=== PATIENT | female | born 1965 | race Caucasian/White ===

== ENCOUNTER 2022-09-08 08:27 | Emergency (ER) | payer OTHER ==
[~2022-09-08] VITALS: Ht 177.8 cm; Wt 107.0 kg
[2022-09-08 09:16] LABS: Basophils # (auto) 0 10 ^3/uL (0-0.2); Basophils % (auto) 0.7 % (0.0-2.0); Eosinophils # (auto) 0.1 10 ^3/uL (0-0.8); Eosinophils % (auto) 1.3 % (0.0-7.0); Hematocrit 42.4 % (36.0-46.0); Hemoglobin 14.2 g/dL (12.2-16.2); Lymphocytes # (auto) 1.6 10 ^3/uL (0.4-5.4); Lymphocytes % (auto) 26.8 % (10.0-50.0); Mean Corpuscular Hgb Conc. 33.6 g/dL (32.0-36.0); Mean Corpuscular Volume 86.4 fL (80.0-100.0); Monocytes # (auto) 0.3 10 ^3/uL (0-1.3); Monocytes % (auto) 5.2 % (0.0-12.0); Neutrophils # (auto) 3.8 10 ^3/uL (1.6-8.6); Red Blood Cells 4.91 10^6/uL (4.0-5.20); Red Cell Distribution Width 13.6 % (11.8-14.3); White Blood Cell 5.8 10^3/uL (4.4-10.8)
[2022-09-08 09:20] LABS: Urine Bacteria FEW /hpf (None Seen); Urine Blood Negative /uL (Negative); Urine Specific Gravity 1.009 (1.001-1.035); Urine WBC <1 /hpf (0 - 5)
[2022-09-08 09:33] LABS: Albumin 3.8 g/dL (3.4-5.0); Potassium 4.1 mmol/L (3.5-5.1)
[2022-09-08 09:37] LABS: Bilirubin, Total 0.5 mg/dL (0.2-1.0); Total Protein 7.7 g/dL (6.4-8.2)
[2022-09-08] MEDS ORDERED: MECLIZINE HCL 25 MG TAB PO ONE (16:00)
[2022-09-08] MEDS ORDERED: FLUT1SPR21 (17:53)
[2022-09-08] MEDS ORDERED: MECL25CH38 PO (17:53)
[2022-09-08 18:05] VITALS: BP 133/82
== END 2022-09-08 18:07 | disposition home or self-care (01) ==
LOC: ER 08:27
DX: H81.10 Benign paroxysmal vertigo, unspecified ear (principal); Z90.89 Acquired absence of other organs
CPT/HCPCS: 36415; 71045; 80053; 81001; 84484; 85025; 93005; 99285; J8597

== ENCOUNTER 2023-03-11 07:46 | Emergency (ER) | payer OTHER ==
[~2023-03-11] VITALS: Ht 175.3 cm; Wt 107.0 kg
[~2023-03-11 07:46] MED LIST: FLUT1SPR21; MECL25CH38 PO
[2023-03-11 08:50] VITALS: BP 143/79
== END 2023-03-11 09:35 | disposition home or self-care (01) ==
LOC: ER 07:46
DX: S76.911A Strain of unspecified muscles, fascia and tendons at thigh level, right thigh, initial encounter (principal); Z88.5 Allergy status to narcotic agent; Z90.49 Acquired absence of other specified parts of digestive tract; Z90.89 Acquired absence of other organs; Z98.890 Other specified postprocedural states; X58.XXXA Exposure to other specified factors, initial encounter; Y93.89 Activity, other specified; Y92.89 Other specified places as the place of occurrence of the external cause; Y99.8 Other external cause status
CPT/HCPCS: 93971

== ENCOUNTER 2023-08-11 10:08 | Inpatient (IN) | payer OTHER ==
[~2023-08-11] VITALS: Ht 175.3 cm; Wt 104.8 kg
[2023-08-11 10:56] LABS: Basophils # (auto) 0.1 10 ^3/uL (0-0.2); Basophils % (auto) 1.4 % (0.0-2.0); Eosinophils # (auto) 0.1 10 ^3/uL (0-0.8); Eosinophils % (auto) 1.7 % (0.0-7.0); Hematocrit 37.3 % (36.0-46.0); Hemoglobin 12.5 g/dL (12.2-16.2); Lymphocytes # (auto) 1.3 10 ^3/uL (0.4-5.4); Lymphocytes % (auto) 17.3 % (10.0-50.0); Mean Corpuscular Hgb Conc. 33.5 g/dL (32.0-36.0); Mean Corpuscular Volume 83.8 fL (80.0-100.0); Monocytes # (auto) 0.4 10 ^3/uL (0-1.3); Monocytes % (auto) 5.3 % (0.0-12.0); Neutrophils # (auto) 5.7 10 ^3/uL (1.6-8.6); Neutrophils % (auto) 74.3 % (37.0-80.0); Nucleated Red Blood Cells % 0.1 %; Red Blood Cells 4.45 10^6/uL (4.0-5.20); Red Cell Distribution Width 13.9 % (11.8-14.3); White Blood Cell 7.6 10^3/uL (4.4-10.8)
[2023-08-11 11:13] LABS: INR 1.1 (0.9-1.15); Prothrombin Time 11.5 sec (9.3-11.8)
[2023-08-11 11:22] LABS: Alanine Aminotransferase 17 U/L (7-40); Albumin 3.7 g/dL (3.2-4.8); Alkaline Phosphatase 136 U/L (46-116); Anion Gap 6 (5-15); Aspartate Aminotransferase 30 U/L (13-40); Blood Urea Nitrogen 10 mg/dL (9-23); Calcium 9.2 mg/dL (8.7-10.4); Carbon Dioxide 28 mmol/L (20-30); Chloride 102 mmol/L (98-107); Glucose 104 mg/dL (74-106); Lipase 52 U/L (12-53); Sodium 136 mmol/L (136-145)
[2023-08-11 11:23] LABS: Bilirubin, Total 0.4 mg/dL (0.2-1.0); Total Protein 7.7 g/dL (5.7-8.2)
[2023-08-11 11:31] LABS: Urine Bacteria FEW /hpf (None Seen); Urine Blood Negative /uL (Negative); Urine Clarity HAZY (Clear); Urine Color Yellow (Yellow); Urine Mucus FEW (None Seen); Urine Protein, UAD 1+ (Negative); Urine Specific Gravity 1.019 (1.001-1.035); Urine Urobilinogen Normal (Negative); Urine WBC 3 /hpf (0 - 5); Urine pH 5.5 (5.0-8.0)
[2023-08-11 12:46] LABS: Bilirubin, Direct 0.2 mg/dL (<0.3)
[2023-08-11] MEDS ORDERED: ACETAMINOPHEN 325 MG TAB PO PRN (13:15)
[2023-08-11 13:38] VITALS: PULSE 77; RESP 19; O2SAT 95
[2023-08-11 13:43] LABS: Triglycerides 140 mg/dL (< 150)
[2023-08-11 13:44] LABS: LDL Cholesterol 116 mg/dL (< 100)
[2023-08-11 13:45] LABS: Cholesterol 188 mg/dL (< 200); HDL Cholesterol 50 mg/dL (40-59)
[2023-08-11] MEDS ORDERED: PANTOPRAZOLE 40 MG/10 ML VIAL INJ IV ONE (13:45)
[2023-08-11] MEDS: MECLIZINE HCL 25 MG TAB PO SCH ×2 (14:24→21:29)
[2023-08-11 16:39] LABS: Body Fluid pH 8
[2023-08-11 18:00] VITALS: BP 146/74; PULSE 77; RESP 14; TEMP 98.4; O2SAT 95
[2023-08-11 20:00] VITALS: RESP 16
[2023-08-11 20:05] LABS: Body Fluid White Blood Cells 1050 CUMM (0-200)
[2023-08-11 20:06] LABS: Body Fluid Polymorphonuclear 28 % (0-25); Body Fluid Red Blood Cells 2350 CUMM (0-2000)
[2023-08-11 22:00] VITALS: BP 116/63; PULSE 82; RESP 18; TEMP 98.6; O2SAT 95
[2023-08-12 05:00] VITALS: BP 124/68; PULSE 72; RESP 17; TEMP 98.8; O2SAT 93
[2023-08-12] MEDS: MECLIZINE HCL 25 MG TAB PO SCH ×3 (05:30→21:20)
[2023-08-12 07:46] LABS: Basophils # (auto) 0.1 10 ^3/uL (0-0.2); Eosinophils # (auto) 0.2 10 ^3/uL (0-0.8); Hemoglobin 11.5 g/dL (12.2-16.2); Monocytes # (auto) 0.6 10 ^3/uL (0-1.3); White Blood Cell 7.2 10^3/uL (4.4-10.8)
[2023-08-12 07:48] LABS: Eosinophils % (auto) 3.4 % (0.0-7.0); Hematocrit 34.3 % (36.0-46.0); Lymphocytes # (auto) 1.4 10 ^3/uL (0.4-5.4); Lymphocytes % (auto) 20.2 % (10.0-50.0); Mean Corpuscular Hemoglobin 27.9 pg (28.0-32.0); Mean Corpuscular Hgb Conc. 33.4 g/dL (32.0-36.0); Mean Corpuscular Volume 83.4 fL (80.0-100.0); Monocytes % (auto) 7.8 % (0.0-12.0); Neutrophils # (auto) 4.9 10 ^3/uL (1.6-8.6); Neutrophils % (auto) 67.6 % (37.0-80.0); Red Blood Cells 4.12 10^6/uL (4.0-5.20)
[2023-08-12 07:50] LABS: Alanine Aminotransferase 12 U/L (7-40); Alkaline Phosphatase 105 U/L (46-116); Anion Gap 5 (5-15); BUN/Creatinine Ratio 12.1 (10.0-20.0); Blood Urea Nitrogen 8 mg/dL (9-23); Calcium 8.6 mg/dL (8.5-10.1); Carbon Dioxide 28 mmol/L (20-30); Chloride 103 mmol/L (98-107); Glucose 92 mg/dL (74-106); Potassium 4.1 mmol/L (3.5-5.1); Sodium 136 mmol/L (136-145)
[2023-08-12 07:51] LABS: Albumin 3.2 g/dL (3.2-4.8); Aspartate Aminotransferase 24 U/L (13-40); Bilirubin, Total 0.5 mg/dL (0.2-1.0); Total Protein 6.6 g/dL (5.7-8.2)
[2023-08-12 08:00] VITALS: RESP 16
[2023-08-12 09:00] VITALS: BP 129/73; PULSE 74; RESP 20; TEMP 98.3; O2SAT 94
[2023-08-12] MEDS: PANTOPRAZOLE 40 MG/10 ML VIAL INJ IV SCH (10:59)
[2023-08-12 13:00] VITALS: BP 128/71; PULSE 66; RESP 20; TEMP 98.7; O2SAT 93
[2023-08-12 13:06] LABS: Protein, Body Fluid 5.6 g/dL (.)
[2023-08-12 22:00] VITALS: BP 118/71; PULSE 84; RESP 18; TEMP 98.8; O2SAT 94
[2023-08-13 05:08] VITALS: BP 122/72; PULSE 88; RESP 16; TEMP 98.5; O2SAT 98
[2023-08-13] MEDS: MECLIZINE HCL 25 MG TAB PO SCH ×2 (05:44→14:00)
[2023-08-13 08:00] VITALS: RESP 16
[2023-08-13 09:00] VITALS: BP 135/78; PULSE 76; RESP 20; TEMP 97.9; O2SAT 94
[2023-08-13] MEDS: PANTOPRAZOLE 40 MG/10 ML VIAL INJ IV SCH (09:22)
[2023-08-13 13:00] VITALS: BP 144/75; PULSE 80; RESP 20; TEMP 98.1; O2SAT 94
[2023-08-13 15:35] VITALS: BP 135/78; PULSE 76; RESP 20; TEMP 36.7; O2SAT 94
[2023-08-13 16:30] VITALS: BP 121/69; PULSE 86; RESP 18; TEMP 97.6; O2SAT 95
== END 2023-08-13 17:30 | disposition home or self-care (01) | DRG 755 ==
LOC: ER 10:08 → OVERFLOW 13:15 → TELE-WESTW 17:56 → WEST WING 18:12
PROVIDERS: ADMIT Nurse Practitioner Family; ATTEND Internal Medicine Geriatric Medicine
PROC: 0W9G3ZZ Drainage of Peritoneal Cavity, Percutaneous Approach (ICD-10-PCS; principal; 2023-08-11)
DX: C56.9 Malignant neoplasm of unspecified ovary (principal); C78.6 Secondary malignant neoplasm of retroperitoneum and peritoneum; R18.0 Malignant ascites; K57.30 Diverticulosis of large intestine without perforation or abscess without bleeding; D73.89 Other diseases of spleen; R97.1 Elevated cancer antigen 125 [CA 125]; E66.01 Morbid (severe) obesity due to excess calories; Z68.34 Body mass index [BMI] 34.0-34.9, adult; Z80.0 Family history of malignant neoplasm of digestive organs; Z83.3 Family history of diabetes mellitus; Z85.07 Personal history of malignant neoplasm of pancreas; Z88.5 Allergy status to narcotic agent; Z90.49 Acquired absence of other specified parts of digestive tract; Z71.3 Dietary counseling and surveillance
CPT/HCPCS: 36415; 71045; 74176; 76705; 76830; 76856; 76942; 80053; 80061; 81001; 82248; 82962; 83690; 83986; 84443; 84484; 85025; 85610; 86301; 86304; 87205; 89051; 93005; 96374; C9113; G0378

== ENCOUNTER 2023-08-23 09:50 | Inpatient (IN) | payer OTHER ==
[~2023-08-23] VITALS: Ht 175.3 cm; Wt 108.6 kg
[2023-08-23 11:03] LABS: Basophils # (auto) 0.1 10 ^3/uL (0-0.2); Eosinophils # (auto) 0.1 10 ^3/uL (0-0.8); Eosinophils % (auto) 0.6 % (0.0-7.0); Lymphocytes # (auto) 1.2 10 ^3/uL (0.4-5.4); Monocytes # (auto) 0.5 10 ^3/uL (0-1.3); Red Cell Distribution Width 14.5 % (11.8-14.3)
[2023-08-23 11:05] LABS: Urine Bacteria NONE SEEN /hpf (None Seen); Urine Blood Negative /uL (Negative); Urine Clarity HAZY (Clear); Urine Color Yellow (Yellow); Urine Hyaline Cast FEW /lpf (0 - 2); Urine Mucus FEW (None Seen); Urine Protein, UAD 1+ (Negative); Urine Specific Gravity 1.028 (1.001-1.035); Urine Urobilinogen Normal (Negative); Urine WBC 2 /hpf (0 - 5); Urine pH 5.5 (5.0-8.0)
[2023-08-23 11:06] LABS: Basophils % (auto) 1.2 % (0.0-2.0); Hematocrit 38.6 % (36.0-46.0); Hemoglobin 12.6 g/dL (12.2-16.2); Lymphocytes % (auto) 14.8 % (10.0-50.0); Mean Corpuscular Hemoglobin 27.4 pg (28.0-32.0); Mean Corpuscular Hgb Conc. 32.7 g/dL (32.0-36.0); Mean Corpuscular Volume 83.8 fL (80.0-100.0); Monocytes % (auto) 6.4 % (0.0-12.0); Neutrophils # (auto) 6.4 10 ^3/uL (1.6-8.6); Nucleated Red Blood Cells % 0.1 %; White Blood Cell 8.3 10^3/uL (4.4-10.8)
[2023-08-23 11:16] LABS: Alanine Aminotransferase 16 U/L (7-40); Albumin 3.5 g/dL (3.2-4.8); Alkaline Phosphatase 150 U/L (46-116); Anion Gap 8 (5-15); Aspartate Aminotransferase 33 U/L (13-40); BUN/Creatinine Ratio 9.9 (10.0-20.0); Bilirubin, Total 0.4 mg/dL (0.2-1.0); Blood Urea Nitrogen 8 mg/dL (9-23); Calcium 8.8 mg/dL (8.5-10.1); Carbon Dioxide 23 mmol/L (20-30); Chloride 103 mmol/L (98-107); Glucose 104 mg/dL (74-106); Potassium 3.9 mmol/L (3.5-5.1); Sodium 134 mmol/L (136-145); Total Protein 7.7 g/dL (5.7-8.2)
[2023-08-23 12:19] VITALS: PULSE 89; RESP 19; O2SAT 96
[2023-08-23 12:20] LABS: INR 1.13 (0.9-1.15); Partial Thromboplastin Time 29.7 SEC (24.5-34.5); Prothrombin Time 11.8 sec (9.3-11.8)
[2023-08-23] MEDS ORDERED: MORPHINE SULFATE INJ 2 MG/ml SYRG IV PRN (13:45)
[2023-08-23] MEDS: SODIUM CHLORIDE 0.9% 1,000 ML IV SCH ×2 (14:10→22:09)
[2023-08-23 20:07] VITALS: PULSE 74; RESP 16; O2SAT 97
[2023-08-23] MEDS: ONDANSETRON HCL 4 MG/2 ML VIAL IV PRN (20:38)
[2023-08-23] MEDS: ACETAMINOPHEN 325 MG TAB PO PRN (20:38)
[2023-08-24] MEDS: ONDANSETRON HCL 4 MG/2 ML VIAL IV PRN ×3 (04:35→20:37)
[2023-08-24 05:00] LABS: Basophils # (auto) 0.1 10 ^3/uL (0-0.2); Basophils % (auto) 0.9 % (0.0-2.0); Eosinophils # (auto) 0.2 10 ^3/uL (0-0.8); Monocytes # (auto) 0.7 10 ^3/uL (0-1.3); Nucleated Red Blood Cells % 0.1 %
[2023-08-24 05:02] LABS: Eosinophils % (auto) 2.6 % (0.0-7.0); Hematocrit 33.7 % (36.0-46.0); Hemoglobin 11.2 g/dL (12.2-16.2); Lymphocytes # (auto) 1.9 10 ^3/uL (0.4-5.4); Lymphocytes % (auto) 27.4 % (10.0-50.0); Mean Corpuscular Hemoglobin 27.3 pg (28.0-32.0); Mean Corpuscular Hgb Conc. 33.1 g/dL (32.0-36.0); Mean Corpuscular Volume 82.6 fL (80.0-100.0); Monocytes % (auto) 9.8 % (0.0-12.0); Neutrophils # (auto) 4.1 10 ^3/uL (1.6-8.6); Neutrophils % (auto) 59.3 % (37.0-80.0); Red Blood Cells 4.08 10^6/uL (4.0-5.20); Red Cell Distribution Width 14.7 % (11.8-14.3); White Blood Cell 6.9 10^3/uL (4.4-10.8)
[2023-08-24 05:05] LABS: Alanine Aminotransferase 12 U/L (7-40); Alkaline Phosphatase 132 U/L (46-116); Anion Gap 5 (5-15); Aspartate Aminotransferase 25 U/L (13-40); Blood Urea Nitrogen 12 mg/dL (9-23); Calcium 8.1 mg/dL (8.7-10.4); Carbon Dioxide 25 mmol/L (20-30); Chloride 105 mmol/L (98-107); Glucose 95 mg/dL (74-106); Potassium 3.9 mmol/L (3.5-5.1); Sodium 135 mmol/L (136-145)
[2023-08-24 05:06] LABS: Bilirubin, Total 0.3 mg/dL (0.2-1.0); Total Protein 6.5 g/dL (5.7-8.2)
[2023-08-24] MEDS: SODIUM CHLORIDE 0.9% 1,000 ML IV SCH ×3 (06:43→23:27)
[2023-08-24 08:00] VITALS: PULSE 90; RESP 16; O2SAT 98
[2023-08-24 09:21] VITALS: BP 143/81; PULSE 77; RESP 16; RESP 18; TEMP 97.7; O2SAT 97; O2SAT 99
[2023-08-24] MEDS ORDERED: NAPR220C PO (10:23)
[2023-08-24 12:23] VITALS: BP 114/71; PULSE 81; RESP 20; TEMP 98.4; O2SAT 95
[2023-08-24] MEDS: ACETAMINOPHEN 325 MG TAB PO PRN ×2 (14:57→21:40)
[2023-08-24 16:34] VITALS: BP 127/84; PULSE 86; RESP 20; TEMP 98.4; O2SAT 95
[2023-08-24 22:00] VITALS: BP 130/82; PULSE 83; RESP 16; TEMP 97.6; O2SAT 95
[2023-08-25] MEDS: ONDANSETRON HCL 4 MG/2 ML VIAL IV PRN ×2 (04:29→14:47)
[2023-08-25 05:00] VITALS: BP 109/56; PULSE 70; RESP 16; TEMP 97.6; O2SAT 94
[2023-08-25] MEDS: SODIUM CHLORIDE 0.9% 1,000 ML IV SCH ×2 (07:25→15:45)
[2023-08-25 08:30] VITALS: RESP 18
[2023-08-25 09:00] VITALS: BP 116/71; PULSE 84; RESP 18; TEMP 97.9; O2SAT 93
[2023-08-25 12:34] VITALS: TEMP 36.6
== END 2023-08-25 17:12 | disposition home or self-care (01) | DRG 392 ==
LOC: ER 09:50 → OVERFLOW 14:01 → WEST WING 08-24 09:15
PROVIDERS: ADMIT Nurse Practitioner Family; ATTEND Family Medicine
PROC: 0W9G3ZZ Drainage of Peritoneal Cavity, Percutaneous Approach (ICD-10-PCS; principal; 2023-08-25)
DX: R10.32 Left lower quadrant pain (principal); R18.0 Malignant ascites; E87.1 Hypo-osmolality and hyponatremia; C56.9 Malignant neoplasm of unspecified ovary; D73.89 Other diseases of spleen; K57.30 Diverticulosis of large intestine without perforation or abscess without bleeding; D75.839 Thrombocytosis, unspecified; E66.01 Morbid (severe) obesity due to excess calories; R42 Dizziness and giddiness; Z90.49 Acquired absence of other specified parts of digestive tract; Z68.33 Body mass index [BMI] 33.0-33.9, adult
CPT/HCPCS: 36415; 76705; 76942; 80053; 81001; 84484; 85025; 85610; 85730; 87081; G0378; J2405

== ENCOUNTER 2023-09-08 08:57 | Inpatient (IN) | payer OTHER ==
[~2023-09-08] VITALS: Ht 162.6 cm; Wt 98.8 kg
[~2023-09-08 08:57] MED LIST changes: -FLUT1SPR21; -MECL25CH38 PO; +NAPR220C PO
[2023-09-08 09:45] LABS: Basophils # (auto) 0.1 10 ^3/uL (0-0.2); Eosinophils # (auto) 0.1 10 ^3/uL (0-0.8); Eosinophils % (auto) 0.6 % (0.0-7.0); Lymphocytes # (auto) 1.4 10 ^3/uL (0.4-5.4); Neutrophils # (auto) 7.7 10 ^3/uL (1.6-8.6); Neutrophils % (auto) 77.4 % (37.0-80.0); White Blood Cell 9.9 10^3/uL (4.4-10.8)
[2023-09-08 09:47] LABS: Basophils % (auto) 0.7 % (0.0-2.0); Hematocrit 38.9 % (36.0-46.0); Hemoglobin 12.8 g/dL (12.2-16.2); Mean Corpuscular Hemoglobin 27.2 pg (28.0-32.0); Mean Corpuscular Volume 82.5 fL (80.0-100.0); Monocytes # (auto) 0.7 10 ^3/uL (0-1.3); Monocytes % (auto) 7.3 % (0.0-12.0); Red Blood Cells 4.71 10^6/uL (4.0-5.20); Red Cell Distribution Width 15.4 % (11.8-14.3)
[2023-09-08 10:00] LABS: Alanine Aminotransferase 16 U/L (7-40); Albumin 3.5 g/dL (3.2-4.8); Alkaline Phosphatase 202 U/L (46-116); Anion Gap 7 (5-15); Aspartate Aminotransferase 38 U/L (13-40); Blood Urea Nitrogen 16 mg/dL (9-23); Calcium 8.9 mg/dL (8.5-10.1); Carbon Dioxide 23 mmol/L (20-30); Chloride 99 mmol/L (98-107); Glucose 103 mg/dL (74-106); Potassium 4.7 mmol/L (3.5-5.1); Sodium 129 mmol/L (136-145)
[2023-09-08 10:01] LABS: Bilirubin, Total 0.4 mg/dL (0.2-1.0)
[2023-09-08 10:06] LABS: INR 1.09 (0.9-1.15); Partial Thromboplastin Time 29.6 SEC (24.5-34.5); Prothrombin Time 11.4 sec (9.3-11.8)
[2023-09-08] MEDS ORDERED: ACETAMINOPHEN 325 MG TAB PO PRN (15:45)
[2023-09-08 15:55] VITALS: O2SAT 98
[2023-09-08 20:05] VITALS: O2SAT 98
[2023-09-09 06:55] LABS: Alanine Aminotransferase 13 U/L (7-40); Albumin 3.1 g/dL (3.2-4.8); Alkaline Phosphatase 192 U/L (46-116); Anion Gap 9 (5-15); Aspartate Aminotransferase 29 U/L (13-40); Bilirubin, Total 0.4 mg/dL (0.2-1.0); Blood Urea Nitrogen 18 mg/dL (9-23); Calcium 8.8 mg/dL (8.7-10.4); Carbon Dioxide 24 mmol/L (20-30); Chloride 98 mmol/L (98-107); Glucose 78 mg/dL (74-106); Potassium 4.7 mmol/L (3.5-5.1); Sodium 131 mmol/L (136-145); Total Protein 7.2 g/dL (5.7-8.2)
[2023-09-09 06:58] LABS: Basophils # (auto) 0 10 ^3/uL (0-0.2); Basophils % (auto) 0.6 % (0.0-2.0); Eosinophils # (auto) 0.1 10 ^3/uL (0-0.8); Lymphocytes # (auto) 1.3 10 ^3/uL (0.4-5.4); Monocytes # (auto) 0.7 10 ^3/uL (0-1.3); Monocytes % (auto) 8.5 % (0.0-12.0); White Blood Cell 8.1 10^3/uL (4.4-10.8)
[2023-09-09 07:00] LABS: Eosinophils % (auto) 0.8 % (0.0-7.0); Hematocrit 36.8 % (36.0-46.0); Hemoglobin 11.9 g/dL (12.2-16.2); Lymphocytes % (auto) 16.2 % (10.0-50.0); Mean Corpuscular Hemoglobin 26.7 pg (28.0-32.0); Mean Corpuscular Hgb Conc. 32.4 g/dL (32.0-36.0); Mean Corpuscular Volume 82.5 fL (80.0-100.0); Neutrophils % (auto) 73.9 % (37.0-80.0); Red Blood Cells 4.46 10^6/uL (4.0-5.20)
[2023-09-09 08:00] VITALS: PULSE 92; RESP 23; O2SAT 95
[2023-09-09 10:50] VITALS: BP 123/61; PULSE 80; RESP 20; TEMP 97.5; O2SAT 97
[2023-09-09 11:17] VITALS: BP 123/61; PULSE 79; RESP 20; TEMP 97.8; O2SAT 98
[2023-09-09] MEDS ORDERED: ONDANSETRON HCL 4 MG/2 ML VIAL IV ONE (11:45)
[2023-09-09] MEDS ORDERED: ZOFR4T PO (11:53)
[2023-09-09] MEDS: ALBUMIN 25% 100 ML IV SCH ×2 (12:00→13:00)
[2023-09-09 13:52] VITALS: BP 103/60; PULSE 93; RESP 22; TEMP 97.8; O2SAT 95
== END 2023-09-09 15:45 | disposition home or self-care (01) | DRG 948 ==
LOC: ER 08:57 → OVERFLOW 15:41 → CENTRAL 09-09 10:16
PROVIDERS: ADMIT Nurse Practitioner Family; ATTEND Internal Medicine Geriatric Medicine
PROC: 0W9G3ZZ Drainage of Peritoneal Cavity, Percutaneous Approach (ICD-10-PCS; principal; 2023-09-09)
DX: R18.8 Other ascites (principal); C16.9 Malignant neoplasm of stomach, unspecified; E87.1 Hypo-osmolality and hyponatremia; E66.01 Morbid (severe) obesity due to excess calories; Z85.43 Personal history of malignant neoplasm of ovary; Z83.3 Family history of diabetes mellitus; Z80.9 Family history of malignant neoplasm, unspecified; Z90.49 Acquired absence of other specified parts of digestive tract; Z68.37 Body mass index [BMI] 37.0-37.9, adult; Z88.5 Allergy status to narcotic agent
CPT/HCPCS: 36415; 76705; 76942; 80053; 85025; 85610; 85730; 93005; G0378

== ENCOUNTER → 2023-09-29 | Outpatient (CLI) | payer OTHER ==
[~2023-09-29] MED LIST changes: +ZOFR4T PO
== END | disposition home or self-care (01) ==
LOC: US 13:32
DX: R18.8 Other ascites (principal)
CPT/HCPCS: 49083; 76700; 76942; C1729

== ENCOUNTER → 2023-10-13 | Outpatient (CLI) | payer OTHER | END | disposition home or self-care (01) | LOC: US 12:57 | DX: R18.8 Other ascites (principal) | CPT/HCPCS: 49083; 76705; 76942; C1729 ==

== ENCOUNTER 2024-01-21 12:11 | Inpatient (IN) | payer OTHER ==
[~2024-01-21] VITALS: Ht 175.3 cm; Wt 90.2 kg
[2024-01-21 13:14] LABS: Hemoglobin 10.4 g/dL (12.2-16.2)
[2024-01-21 13:17] LABS: Hematocrit 32.5 % (36.0-46.0); Mean Corpuscular Hemoglobin 29.6 pg (28.0-32.0); Mean Corpuscular Hgb Conc. 31.9 g/dL (32.0-36.0); Mean Corpuscular Volume 92.6 fL (80.0-100.0); Red Blood Cells 3.51 10^6/uL (4.0-5.20); White Blood Cell 24.5 10^3/uL (4.4-10.8)
[2024-01-21 13:23] LABS: Basophils % (manual) 0 (0.0-2.0); Blast Cells 0; Eosinophils % (manual) 0 (0-7); Metamyelocytes % 0; Myelocytes % 0; Promyelocytes % 0; Reactive Lymphocytes 0; Red Cell Distribution Width 21.4 % (11.8-14.3)
[2024-01-21 13:41] LABS: Alanine Aminotransferase 16 U/L (7-40); Albumin 3.9 g/dL (3.2-4.8); Alkaline Phosphatase 92 U/L (46-116); Anion Gap 4 (5-15); Aspartate Aminotransferase 21 U/L (13-40); BUN/Creatinine Ratio 27.3 (10.0-20.0); Blood Urea Nitrogen 18 mg/dL (9-23); Calcium 9.6 mg/dL (8.7-10.4); Carbon Dioxide 26 mmol/L (20-30); Chloride 106 mmol/L (98-107); Glucose 110 mg/dL (74-106); Lipase 44 U/L (12-53); Magnesium 1.7 mg/dL (1.6-2.6); Potassium 4.4 mmol/L (3.5-5.1); Sodium 136 mmol/L (136-145)
[2024-01-21 13:42] LABS: Bilirubin, Total 0.2 mg/dL (0.2-1.0); Total Protein 7.6 g/dL (5.7-8.2)
[2024-01-21 14:37] LABS: Band Neutrophils % (manual) 18; Lymphocytes % (manual) 39 (10.0-50.0); Monocytes % (manual) 7 (0-12)
[2024-01-21 14:38] LABS: Platelet Estimate Adequate
[2024-01-21] MEDS: ASPirin 325 MG TAB PO ONE (15:35)
[2024-01-21] MEDS ORDERED: MORPHINE SULFATE INJ 2 MG/ml SYRG IV PRN (18:15)
[2024-01-21] MEDS ORDERED: NITROGLYCERIN 0.4 MG SL TAB SL PRN (18:15)
[2024-01-21] MEDS ORDERED: ONDANSETRON ODT 4 MG TAB PO PRN (18:45)
[2024-01-21 20:05] LABS: INR 1.02 (0.9-1.15); Partial Thromboplastin Time 27.1 SEC (24.5-34.5); Prothrombin Time 10.7 sec (9.3-11.8)
[2024-01-21 20:07] LABS: % Iron Saturation 17.8 % (15-50)
[2024-01-21 20:16] LABS: Folate (Folic Acid) 17.76 ng/mL (>5.38)
[2024-01-21 20:17] LABS: Ferritin 784.4 ng/mL (10-291)
[2024-01-21 20:29] LABS: Erythrocyte Sedimentation Rate 84 mm/hr (0-20)
[2024-01-21] MEDS: PROPRANOLOL HCL 20 MG TAB PO ONE (20:35)
[2024-01-21 20:50] LABS: CRP High Sensitivity 0.47 mg/dL (<1.0)
[2024-01-21 21:30] VITALS: PULSE 90; RESP 16; O2SAT 96
[2024-01-21] MEDS: ATORVASTATIN 20 MG TAB PO SCH (22:00)
[2024-01-22] VITALS (8 sets, daily range): BP systolic 122–151; BP diastolic 61–83; PULSE 65–83; RESP 18–19; TEMP 97.5–98.1; O2SAT 96–97
[2024-01-22 06:52] LABS: Basophils # (auto) 0.1 10 ^3/uL (0-0.2); Basophils % (auto) 0.6 % (0.0-2.0); Eosinophils # (auto) 0.1 10 ^3/uL (0-0.8); Eosinophils % (auto) 0.4 % (0.0-7.0); Hematocrit 30.9 % (36.0-46.0); Hemoglobin 9.9 g/dL (12.2-16.2); Lymphocytes # (auto) 2.5 10 ^3/uL (0.4-5.4); Lymphocytes % (auto) 13.3 % (10.0-50.0); Mean Corpuscular Hemoglobin 29.9 pg (28.0-32.0); Mean Corpuscular Hgb Conc. 32.1 g/dL (32.0-36.0); Mean Corpuscular Volume 93.2 fL (80.0-100.0); Monocytes # (auto) 1.7 10 ^3/uL (0-1.3); Neutrophils # (auto) 14.2 10 ^3/uL (1.6-8.6); Neutrophils % (auto) 76.7 % (37.0-80.0); Nucleated Red Blood Cells % 0.4 %; Red Blood Cells 3.31 10^6/uL (4.0-5.20); Red Cell Distribution Width 21.8 % (11.8-14.3); White Blood Cell 18.5 10^3/uL (4.4-10.8)
[2024-01-22 06:53] LABS: Chloride 105 mmol/L (98-107); Potassium 4.4 mmol/L (3.5-5.1); Sodium 137 mmol/L (136-145)
[2024-01-22 06:54] LABS: Anion Gap 5 (5-15); Calcium 9.7 mg/dL (8.7-10.4); Carbon Dioxide 27 mmol/L (20-30)
[2024-01-22 06:59] LABS: BUN/Creatinine Ratio 23.1 (10.0-20.0); Blood Urea Nitrogen 15 mg/dL (9-23); Glucose 85 mg/dL (74-106); Magnesium 1.8 mg/dL (1.6-2.6)
[2024-01-22 08:45] LABS: Hepatitis B Surface Antigen Negative (Negative)
[2024-01-22 09:08] LABS: Hepatitis C Antibody Negative (Negative)
[2024-01-22] MEDS: ASPirin 81 mg TAB PO SCH (09:15)
[2024-01-22] MEDS: PROPRANOLOL HCL 20 MG TAB PO SCH (09:15)
[2024-01-22 11:50] LABS: Basophils # (auto) 0.1 10 ^3/uL (0-0.2); Basophils % (auto) 0.5 % (0.0-2.0); Eosinophils # (auto) 0.1 10 ^3/uL (0-0.8); Eosinophils % (auto) 0.4 % (0.0-7.0); Hematocrit 31.8 % (36.0-46.0); Hemoglobin 10.4 g/dL (12.2-16.2); Lymphocytes # (auto) 2.5 10 ^3/uL (0.4-5.4); Lymphocytes % (auto) 13.5 % (10.0-50.0); Mean Corpuscular Hemoglobin 30.3 pg (28.0-32.0); Mean Corpuscular Hgb Conc. 32.6 g/dL (32.0-36.0); Monocytes # (auto) 1.7 10 ^3/uL (0-1.3); Monocytes % (auto) 9.1 % (0.0-12.0); Neutrophils # (auto) 13.9 10 ^3/uL (1.6-8.6); Neutrophils % (auto) 76.5 % (37.0-80.0); Nucleated Red Blood Cells % 0.1 %; Red Blood Cells 3.42 10^6/uL (4.0-5.20); White Blood Cell 18.2 10^3/uL (4.4-10.8)
[2024-01-22 12:03] LABS: INR 1.02 (0.9-1.15); Partial Thromboplastin Time 26.8 SEC (24.5-34.5); Prothrombin Time 10.7 sec (9.3-11.8)
[2024-01-22 12:04] LABS: Alanine Aminotransferase 14 U/L (7-40); Albumin 3.8 g/dL (3.2-4.8); Alkaline Phosphatase 85 U/L (46-116); Anion Gap 4 (5-15); Aspartate Aminotransferase 19 U/L (13-40); BUN/Creatinine Ratio 18.6 (10.0-20.0); Blood Urea Nitrogen 13 mg/dL (9-23); Calcium 9.8 mg/dL (8.7-10.4); Carbon Dioxide 28 mmol/L (20-30); Chloride 104 mmol/L (98-107); Glucose 96 mg/dL (74-106); Potassium 4.2 mmol/L (3.5-5.1); Sodium 136 mmol/L (136-145)
[2024-01-22 12:06] LABS: Bilirubin, Total 0.2 mg/dL (0.2-1.0); Total Protein 7.9 g/dL (5.7-8.2)
[2024-01-23 05:00] VITALS: BP 137/77; PULSE 69; RESP 18; TEMP 97.3; O2SAT 98
[2024-01-23 07:02] LABS: Hematocrit 33.5 % (36.0-46.0); Hemoglobin 10.7 g/dL (12.2-16.2); Mean Corpuscular Hemoglobin 29.9 pg (28.0-32.0); Mean Corpuscular Hgb Conc. 31.9 g/dL (32.0-36.0); Mean Corpuscular Volume 93.9 fL (80.0-100.0); Red Blood Cells 3.57 10^6/uL (4.0-5.20); White Blood Cell 15.6 10^3/uL (4.4-10.8)
[2024-01-23 07:09] LABS: Chloride 104 mmol/L (98-107); Potassium 4.6 mmol/L (3.5-5.1); Sodium 134 mmol/L (136-145)
[2024-01-23 07:10] LABS: Anion Gap 5 (5-15); Basophils % (manual) 0 (0.0-2.0); Blast Cells 0; Carbon Dioxide 25 mmol/L (20-30); Metamyelocytes % 0; Myelocytes % 0; Promyelocytes % 0; Reactive Lymphocytes 0
[2024-01-23 07:15] LABS: BUN/Creatinine Ratio 22.4 (10.0-20.0); Blood Urea Nitrogen 15 mg/dL (9-23); Glucose 106 mg/dL (74-106); Magnesium 1.8 mg/dL (1.6-2.6)
[2024-01-23 07:30] VITALS: PULSE 77; RESP 18
[2024-01-23 07:39] LABS: Band Neutrophils % (manual) 8; Eosinophils % (manual) 1 (0-7); Lymphocytes % (manual) 18 (10.0-50.0); Monocytes % (manual) 4 (0-12)
[2024-01-23 07:40] LABS: Platelet Estimate Adequate
[2024-01-23 07:46] LABS: Urine Bacteria NONE SEEN /hpf (None Seen); Urine Blood Negative /uL (Negative); Urine Clarity Clear (Clear); Urine Color Colorless (Yellow); Urine Protein, UAD Negative (Negative); Urine Specific Gravity 1.009 (1.001-1.035); Urine Urobilinogen Normal (Negative); Urine WBC 2 /hpf (0 - 5)
[2024-01-23 07:48] LABS: Amphetamine Screen, Urine Neg (NEGATIVE); Benzodiazephine Screen, Urine Neg (NEGATIVE)
[2024-01-23 07:49] LABS: Barbiturate Scree,Urine Neg (NEGATIVE); Cannabinoid Screen, Urine Neg (NEGATIVE); Cocaine Screen, Urine Neg (NEGATIVE); Opiate Scree,Urine Neg (NEGATIVE); Phencyclidine Screen, Urine Neg (NEGATIVE)
[2024-01-23 08:00] VITALS: PULSE 80
[2024-01-23 09:00] VITALS: BP 133/80; PULSE 77; RESP 18; TEMP 98.2; O2SAT 100
[2024-01-23] MEDS ORDERED: SPIR25TA8 PO (09:04)
[2024-01-23] MEDS ORDERED: FURO20TA3 PO (09:04)
[2024-01-23 14:32] VITALS: BP 133/80; PULSE 77; RESP 18; TEMP 98.2; O2SAT 100
== END 2024-01-23 15:51 | disposition home or self-care (01) | DRG 91 ==
LOC: ER 12:11 → TELE 18:10 → TELE-WESTW 18:10
PROVIDERS: ADMIT Internal Medicine Geriatric Medicine; ATTEND Emergency Medicine
DX: R25.1 Tremor, unspecified (principal); I21.A1 Myocardial infarction type 2; C48.1 Malignant neoplasm of specified parts of peritoneum; D64.9 Anemia, unspecified; D72.829 Elevated white blood cell count, unspecified; F17.200 Nicotine dependence, unspecified, uncomplicated; F41.9 Anxiety disorder, unspecified; G62.9 Polyneuropathy, unspecified; F80.81 Childhood onset fluency disorder; Z90.49 Acquired absence of other specified parts of digestive tract; Z85.43 Personal history of malignant neoplasm of ovary; Z88.5 Allergy status to narcotic agent; Z83.3 Family history of diabetes mellitus; Z80.0 Family history of malignant neoplasm of digestive organs; Z86.73 Personal history of transient ischemic attack (TIA), and cerebral infarction without residual deficits
CPT/HCPCS: 36415; 70450; 70551; 71045; 71250; 74176; 80048; 80053; 80061; 80307; 80320; 81001; 82140; 82390; 82550; 82607; 82728; 82746; 82962; 83010; 83036; 83540; 83550; 83605; 83615; 83655; 83690; 83735; 83880; 84443; 84484; 85007; 85025; 85027; 85045; 85610; 85652; 85730; 86141; 86803; 86850; 86900; 86901; 87040; 87340; 93005; 93306; 99291; G0378

== ENCOUNTER 2024-07-12 20:29 | Inpatient (IN) | payer MEDICAID, OTHER ==
[~2024-07-12] VITALS: Ht 177.8 cm; Wt 99.6 kg
[~2024-07-12 20:29] MED LIST changes: +FURO20TA3 PO; +SPIR25TA8 PO
[2024-07-12] MEDS: MORPHINE SULFATE 4 MG/ML SYR/VIAL IV ONE (21:28)
[2024-07-12] MEDS: SODIUM CHLORIDE 0.9% 1,000 ML IV ONE (21:28)
[2024-07-12] MEDS: ONDANSETRON HCL 4 MG/2 ML VIAL IV ONE (21:29)
[2024-07-12 21:30] VITALS: PULSE 109; RESP 20; O2SAT 95
[2024-07-12 21:52] LABS: Basophils # (auto) 0.1 10 ^3/uL (0-0.2); Basophils % (auto) 0.6 % (0.0-2.0); Eosinophils # (auto) 0.1 10 ^3/uL (0-0.8); Eosinophils % (auto) 0.8 % (0.0-7.0); Hematocrit 33.1 % (36.0-46.0); Hemoglobin 11.3 g/dL (12.2-16.2); Lymphocytes # (auto) 1.7 10 ^3/uL (0.4-5.4); Mean Corpuscular Hemoglobin 28.4 pg (28.0-32.0); Mean Corpuscular Hgb Conc. 34.1 g/dL (32.0-36.0); Mean Corpuscular Volume 83.3 fL (80.0-100.0); Monocytes # (auto) 0.7 10 ^3/uL (0-1.3); Monocytes % (auto) 5.9 % (0.0-12.0); Neutrophils # (auto) 8.9 10 ^3/uL (1.6-8.6); Neutrophils % (auto) 77.7 % (37.0-80.0); Platelet Count (auto) 497 10^3/uL (140-450); Red Blood Cells 3.97 10^6/uL (4.0-5.20); Red Cell Distribution Width 17.2 % (11.8-14.3); White Blood Cell 11.4 10^3/uL (4.4-10.8)
[2024-07-12 22:01] LABS: Alanine Aminotransferase 10 U/L (7-40); Albumin 4.4 g/dL (3.2-4.8); Alkaline Phosphatase 58 U/L (46-116); Anion Gap 8 (5-15); Aspartate Aminotransferase 27 U/L (13-40); BUN/Creatinine Ratio 16.2 (10.0-20.0); Bilirubin, Total 0.6 mg/dL (0.2-1.0); Blood Urea Nitrogen 16 mg/dL (9-23); Calcium 9.5 mg/dL (8.7-10.4); Carbon Dioxide 22 mmol/L (20-30); Chloride 103 mmol/L (98-107); Glucose 127 mg/dL (74-106); Lipase 47 U/L (12-53); Potassium 4.1 mmol/L (3.5-5.1); Sodium 133 mmol/L (136-145); Total Protein 8.5 g/dL (5.7-8.2)
[2024-07-12] MEDS: IOHEXOL 350 MG/ML 100ML IJ ONE (22:02)
[2024-07-12 22:10] LABS: INR 1.09 (0.9-1.15); Partial Thromboplastin Time 28.1 SEC (24.5-34.5); Prothrombin Time 11.5 sec (9.3-11.8)
[2024-07-13] VITALS (7 sets, daily range): BP systolic 117–121; BP diastolic 61–75; PULSE 73–90; RESP 18–24; TEMP 98.3–98.9; O2SAT 94–99
[2024-07-13] MEDS: ONDANSETRON HCL 4 MG/2 ML VIAL IV ONE (01:01)
[2024-07-13] MEDS ORDERED: ACETAMINOPHEN 325 MG TAB PO PRN (04:00)
[2024-07-13] MEDS ORDERED: MORPHINE SULFATE INJ 2 MG/ml SYRG IV PRN (04:00)
[2024-07-13] MEDS ORDERED: HYDROcodone-ACET 5/325MG TAB PO PRN (04:00)
[2024-07-13] MEDS: DOCUSATE SOD 100 MG CAP PO ONE (15:09)
[2024-07-13] MEDS: traMADol HCL 50 MG TAB PO PRN (15:10)
[2024-07-13] MEDS: PANTOPRAZOLE 40 MG TAB PO ONE (15:10)
[2024-07-13] MEDS: DOCUSATE SOD 100 MG CAP PO SCH (20:47)
[2024-07-13] MEDS: TEMAZEPAM 15 MG CAP PO PRN (22:21)
[2024-07-14 01:00] VITALS: BP 94/64; PULSE 83; RESP 20; TEMP 98; O2SAT 93
[2024-07-14 05:00] VITALS: BP 100/47; PULSE 83; RESP 20; TEMP 98.2; O2SAT 95
[2024-07-14] MEDS: PANTOPRAZOLE 40 MG TAB PO SCH (05:30)
[2024-07-14 08:00] VITALS: BP 107/60; PULSE 80; RESP 18; TEMP 97.7; O2SAT 98
[2024-07-14 08:13] LABS: Basophils # (auto) 0 10 ^3/uL (0-0.2); Basophils % (auto) 0.3 % (0.0-2.0); Eosinophils # (auto) 0.1 10 ^3/uL (0-0.8); Eosinophils % (auto) 1.4 % (0.0-7.0); Hematocrit 31.6 % (36.0-46.0); Hemoglobin 10.6 g/dL (12.2-16.2); Lymphocytes # (auto) 1.6 10 ^3/uL (0.4-5.4); Lymphocytes % (auto) 17.5 % (10.0-50.0); Mean Corpuscular Hemoglobin 28.3 pg (28.0-32.0); Mean Corpuscular Hgb Conc. 33.6 g/dL (32.0-36.0); Mean Corpuscular Volume 84.2 fL (80.0-100.0); Monocytes # (auto) 0.6 10 ^3/uL (0-1.3); Neutrophils # (auto) 6.8 10 ^3/uL (1.6-8.6); Neutrophils % (auto) 73.8 % (37.0-80.0); Nucleated Red Blood Cells % 0.1 %; Platelet Count (auto) 432 10^3/uL (140-450); Red Blood Cells 3.75 10^6/uL (4.0-5.20); Red Cell Distribution Width 17.1 % (11.8-14.3); White Blood Cell 9.2 10^3/uL (4.4-10.8)
[2024-07-14 08:29] LABS: Chloride 100 mmol/L (98-107); Potassium 4.1 mmol/L (3.5-5.1); Sodium 132 mmol/L (136-145)
[2024-07-14 08:30] LABS: Anion Gap 6 (5-15); Calcium 9.3 mg/dL (8.7-10.4); Carbon Dioxide 26 mmol/L (20-30)
[2024-07-14 08:35] LABS: BUN/Creatinine Ratio 17.1 (10.0-20.0); Blood Urea Nitrogen 14 mg/dL (9-23); Glucose 103 mg/dL (74-106)
[2024-07-14] MEDS: ONDANSETRON HCL 4 MG/2 ML VIAL IV PRN (09:02)
[2024-07-14] MEDS ORDERED: TRAM-626 PO (11:35)
[2024-07-14] MEDS ORDERED: MORP-109 PO (11:35)
[2024-07-14 12:30] VITALS: BP 123/58; PULSE 88; RESP 19; TEMP 97.9; O2SAT 93
[2024-07-14] MEDS ORDERED: ZOLP5TAB PO ×2 (14:15→14:16)
== END 2024-07-14 14:46 | disposition home or self-care (01) | DRG 240 ==
LOC: ER 20:29 → OVERFLOW 07-13 04:00 → WEST WING 07-13 10:53
PROVIDERS: ADMIT Nurse Practitioner; ATTEND Internal Medicine Geriatric Medicine
DX: C78.6 Secondary malignant neoplasm of retroperitoneum and peritoneum (principal); C78.7 Secondary malignant neoplasm of liver and intrahepatic bile duct; D63.8 Anemia in other chronic diseases classified elsewhere; C76.2 Malignant neoplasm of abdomen; E87.1 Hypo-osmolality and hyponatremia; Z88.5 Allergy status to narcotic agent; Z90.49 Acquired absence of other specified parts of digestive tract; Z83.3 Family history of diabetes mellitus; Z80.0 Family history of malignant neoplasm of digestive organs; Z80.8 Family history of malignant neoplasm of other organs or systems
CPT/HCPCS: 36415; 80048; 80053; 83605; 83690; 83880; 84484; 85025; 85610; 85730; 93005; 96361; 96374; 96375; 96376; G0378; J2405

== ENCOUNTER 2024-08-25 14:35 | Inpatient (IN) | payer MEDICAID ==
[~2024-08-25] VITALS: Ht 175.3 cm; Wt 96.0 kg
[~2024-08-25 14:35] MED LIST changes: +MORP-109 PO; +TRAM-626 PO; +ZOLP5TAB PO
[2024-08-25 15:09] VITALS: PULSE 103; RESP 22; O2SAT 95
[2024-08-25 16:59] LABS: Basophils # (auto) 0 10 ^3/uL (0-0.2); Basophils % (auto) 0.3 % (0.0-2.0); Eosinophils # (auto) 0 10 ^3/uL (0-0.8); Hematocrit 31.2 % (36.0-46.0); Lymphocytes # (auto) 0.5 10 ^3/uL (0.4-5.4); Lymphocytes % (auto) 4.2 % (10.0-50.0); Mean Corpuscular Hemoglobin 26.8 pg (28.0-32.0); Mean Corpuscular Hgb Conc. 31.9 g/dL (32.0-36.0); Mean Corpuscular Volume 83.9 fL (80.0-100.0); Monocytes # (auto) 0.1 10 ^3/uL (0-1.3); Neutrophils # (auto) 12.1 10 ^3/uL (1.6-8.6); Neutrophils % (auto) 94.5 % (37.0-80.0); Platelet Count (auto) 476 10^3/uL (140-450); Red Blood Cells 3.72 10^6/uL (4.0-5.20); White Blood Cell 12.8 10^3/uL (4.4-10.8)
[2024-08-25 17:02] LABS: Red Cell Distribution Width 20.3 % (11.8-14.3)
[2024-08-25 17:12] LABS: Alanine Aminotransferase 13 U/L (7-40); Albumin 3.5 g/dL (3.2-4.8); Alkaline Phosphatase 63 U/L (46-116); Anion Gap 10 (5-15); Aspartate Aminotransferase 17 U/L (13-40); BUN/Creatinine Ratio 19.6 (10.0-20.0); Bilirubin, Total 0.3 mg/dL (0.2-1.0); Blood Urea Nitrogen 19 mg/dL (9-23); Carbon Dioxide 20 mmol/L (20-31); Chloride 108 mmol/L (98-107); Glucose 249 mg/dL (74-106); Magnesium 1.7 mg/dL (1.6-2.6); Potassium 4.4 mmol/L (3.5-5.1); Sodium 138 mmol/L (136-145); Total Protein 7.1 g/dL (5.7-8.2)
[2024-08-25 17:16] LABS: Lactic Acid w/Reflex 4.2 mmol/L (0.4-2.0)
[2024-08-25] MEDS: cefTRIAXone 1GM/50ML D5W 50 ML IV ONE (20:23)
[2024-08-25] MEDS: IOHEXOL 300 MG/ML 100ML BOTTLE IJ ONE (21:51)
[2024-08-25] MEDS: SODIUM CHLORIDE 0.9% 1,000 ML IV ONE ×2 (22:21→23:53)
[2024-08-25] MEDS ORDERED: ONDANSETRON HCL 4 MG/2 ML VIAL IV PRN (22:45)
[2024-08-25] MEDS ORDERED: MORPHINE SULFATE INJ 2 MG/ml SYRG IV PRN ×2 (22:45)
[2024-08-25] MEDS ORDERED: HYDROcodone-ACET 5/325MG TAB PO PRN (22:45)
[2024-08-25] MEDS ORDERED: ACETAMINOPHEN 325 MG TAB PO PRN (22:45)
[2024-08-25] MEDS ORDERED: TEMAZEPAM 15 MG CAP PO PRN (22:45)
[2024-08-25] MEDS ORDERED: NITROGLYCERIN 0.4 MG SL TAB SL PRN (22:45)
[2024-08-26] VITALS (8 sets, daily range): BP systolic 103–122; BP diastolic 54–79; PULSE 70–95; RESP 17–18; TEMP 97.7–98.8; O2SAT 95–98
[2024-08-26] MEDS: ENOXAPARIN SOD 40 MG/0.4 ML SYRINGE SC SCH (10:00)
[2024-08-26 10:58] LABS: Basophils # (auto) 0 10 ^3/uL (0-0.2); Basophils % (auto) 0.2 % (0.0-2.0); Eosinophils # (auto) 0 10 ^3/uL (0-0.8); Hematocrit 26.3 % (36.0-46.0); Hemoglobin 8.7 g/dL (12.2-16.2); Lymphocytes # (auto) 0.5 10 ^3/uL (0.4-5.4); Lymphocytes % (auto) 5.1 % (10.0-50.0); Mean Corpuscular Hemoglobin 27.5 pg (28.0-32.0); Mean Corpuscular Hgb Conc. 33.1 g/dL (32.0-36.0); Monocytes # (auto) 0.7 10 ^3/uL (0-1.3); Monocytes % (auto) 6.2 % (0.0-12.0); Neutrophils # (auto) 9.5 10 ^3/uL (1.6-8.6); Neutrophils % (auto) 88.5 % (37.0-80.0); Platelet Count (auto) 421 10^3/uL (140-450); Red Blood Cells 3.17 10^6/uL (4.0-5.20); Red Cell Distribution Width 19.5 % (11.8-14.3); White Blood Cell 10.7 10^3/uL (4.4-10.8)
[2024-08-26 11:14] LABS: Chloride 105 mmol/L (98-107); Potassium 3.9 mmol/L (3.5-5.1); Sodium 137 mmol/L (136-145)
[2024-08-26 11:15] LABS: Anion Gap 7 (5-15); Carbon Dioxide 25 mmol/L (20-31)
[2024-08-26 11:16] LABS: Calcium 9.2 mg/dL (8.7-10.4)
[2024-08-26 11:20] LABS: Glucose 105 mg/dL (74-106)
[2024-08-26 11:21] LABS: Blood Urea Nitrogen 16 mg/dL (9-23); Magnesium 1.9 mg/dL (1.6-2.6)
[2024-08-26 11:27] LABS: Folate (Folic Acid) 8.87 ng/mL (>5.38)
[2024-08-26 11:39] LABS: % Iron Saturation 73.5 % (15-50)
[2024-08-26 11:41] LABS: Lactic Acid w/Reflex 2.8 mmol/L (0.4-2.0)
[2024-08-26 12:42] LABS: Urine Bacteria None Seen /hpf (None Seen)
[2024-08-26 13:03] LABS: Amphetamine Screen, Urine Neg (NEGATIVE); Benzodiazephine Screen, Urine Neg (NEGATIVE)
[2024-08-26 13:04] LABS: Barbiturate Scree,Urine Neg (NEGATIVE); Cannabinoid Screen, Urine Pos (NEGATIVE); Cocaine Screen, Urine Neg (NEGATIVE); Opiate Scree,Urine Neg (NEGATIVE); Phencyclidine Screen, Urine Neg (NEGATIVE)
[2024-08-26 13:11] LABS: Urine Blood Negative /uL (Negative); Urine Clarity Clear (Clear); Urine Color Light-Yellow (Yellow); Urine Protein, UAD Negative (Negative); Urine Specific Gravity 1.017 (1.001-1.035); Urine Urobilinogen Normal (Negative); Urine WBC <1 /hpf (0 - 5); Urine pH 5.5 (5.0-9.0)
[2024-08-26 13:22] LABS: Free T3 2.71 pg/mL (2.3-4.2)
[2024-08-26 13:23] LABS: Free T4 (Free Thyroxine) 1.23 ng/dL (0.89-1.76)
[2024-08-26] MEDS: MAGNESIUM SULFATE 1GM/100ML 100 ML IV ONE (16:00)
[2024-08-26] MEDS: SODIUM CHLORIDE 0.9% 1,000 ML IV STA (18:00)
[2024-08-27 01:00] VITALS: BP 110/66; PULSE 71; RESP 18; TEMP 97.7; O2SAT 96
[2024-08-27 05:00] VITALS: BP_SYST 108; BP_SYST 109; BP_SYST 111; BP_DIAS 64; BP_DIAS 66; BP_DIAS 74; PULSE 64; RESP 18; TEMP 98.2; O2SAT 99
[2024-08-27 06:39] LABS: Basophils # (auto) 0 10 ^3/uL (0-0.2); Eosinophils # (auto) 0 10 ^3/uL (0-0.8); Eosinophils % (auto) 0.8 % (0.0-7.0); Lymphocytes # (auto) 0.7 10 ^3/uL (0.4-5.4); Lymphocytes % (auto) 13.1 % (10.0-50.0); Monocytes # (auto) 0.2 10 ^3/uL (0-1.3); Monocytes % (auto) 3.4 % (0.0-12.0)
[2024-08-27 06:46] LABS: Basophils % (auto) 0.8 % (0.0-2.0); Hematocrit 22.7 % (36.0-46.0); Hemoglobin 7.6 g/dL (12.2-16.2); Mean Corpuscular Hemoglobin 27.8 pg (28.0-32.0); Mean Corpuscular Hgb Conc. 33.5 g/dL (32.0-36.0); Mean Corpuscular Volume 82.8 fL (80.0-100.0); Neutrophils # (auto) 4.5 10 ^3/uL (1.6-8.6); Neutrophils % (auto) 81.9 % (37.0-80.0); Platelet Count (auto) 305 10^3/uL (140-450); Red Blood Cells 2.74 10^6/uL (4.0-5.20); Red Cell Distribution Width 19.9 % (11.8-14.3); White Blood Cell 5.5 10^3/uL (4.4-10.8)
[2024-08-27 06:50] LABS: Chloride 105 mmol/L (98-107); Potassium 3.9 mmol/L (3.5-5.1); Sodium 138 mmol/L (136-145)
[2024-08-27 06:51] LABS: Anion Gap 7 (5-15); Carbon Dioxide 26 mmol/L (20-31)
[2024-08-27 06:52] LABS: Calcium 9.1 mg/dL (8.7-10.4)
[2024-08-27 06:57] LABS: BUN/Creatinine Ratio 26.2 (10.0-20.0); Blood Urea Nitrogen 17 mg/dL (9-23); Glucose 81 mg/dL (74-106)
[2024-08-27 07:07] LABS: RPR Non Reactive (Non Reactive)
[2024-08-27 08:00] VITALS: PULSE 60; PULSE 69; RESP 20; O2SAT 98
[2024-08-27 09:00] VITALS: BP 120/58; PULSE 69; RESP 20; TEMP 98.3; O2SAT 98
[2024-08-27 13:00] VITALS: BP 116/60; PULSE 74; RESP 20; TEMP 98.5; O2SAT 95
[2024-08-27 14:07] VITALS: BP 116/60; PULSE 74; RESP 20; TEMP 98.3; O2SAT 95
== END 2024-08-27 15:18 | disposition hospice, home (50) | DRG 204 ==
LOC: EDBD 14:35 → ER 14:35 → TELE 22:48 → TELE-CENTR 08-26 02:53
PROVIDERS: ADMIT Internal Medicine; ATTEND Internal Medicine
DX: I95.1 Orthostatic hypotension (principal); E87.20 Acidosis, unspecified; C78.6 Secondary malignant neoplasm of retroperitoneum and peritoneum; E86.0 Dehydration; D63.8 Anemia in other chronic diseases classified elsewhere; C78.7 Secondary malignant neoplasm of liver and intrahepatic bile duct; I47.10 Supraventricular tachycardia, unspecified; E86.1 Hypovolemia; Z66 Do not resuscitate; Z51.5 Encounter for palliative care; S80.12XA Contusion of left lower leg, initial encounter; I77.810 Thoracic aortic ectasia; E66.9 Obesity, unspecified; Z68.31 Body mass index [BMI] 31.0-31.9, adult; Z88.5 Allergy status to narcotic agent; Z80.8 Family history of malignant neoplasm of other organs or systems; Z80.0 Family history of malignant neoplasm of digestive organs; Z85.43 Personal history of malignant neoplasm of ovary; Z92.21 Personal history of antineoplastic chemotherapy; W18.39XA Other fall on same level, initial encounter; Y93.89 Activity, other specified; Y92.89 Other specified places as the place of occurrence of the external cause; Y99.8 Other external cause status
CPT/HCPCS: 36415; 70450; 71045; 73701; 80048; 80053; 80307; 81001; 82607; 82728; 82746; 83036; 83540; 83550; 83605; 83735; 83880; 84439; 84443; 84481; 84484; 85025; 86592; 93005; 93306; 93886; 96365; G0378; J1642

== ENCOUNTER 2024-11-16 08:57 | Emergency (ER) | payer MEDICAID ==
[~2024-11-16] VITALS: Ht 175.3 cm; Wt 86.3 kg
--- NOTE | 2024-11-16 09:17 | ED.PDOC ---
History of Present Illness HPI Comments 59 y/o F presents with c/o shortness of breath and abdominal distension, today. Patient comments on difficulty breathing being secondary to abdominal distension onset, recently, and being sent by her PCP for paracentesis. She states last paracentesis in September 2023. She reports chemotherapy session completed, recently, for liver and ovarian CA. She denies having any other associated symptoms or modifiers at this time. Time Seen by MD: 09:00 Primary Care Provider: TOM Reviewed Notes: Nurses Notes, Medications, Allergies Allergies: Coded Allergies: Codeine (Verified Allergy, Unknown, 09/08/22) Home Meds Active Scripts Zolpidem Tartrate (Ambien) 5 Mg Tab, 5 MG PO QHSP PRN for 30 Days, #30 TAB Prov:ELVIN STRICKLAND MD 07/14/24 Tramadol HCl (Tramadol HCl) 50 Mg Tab, 50 MG PO Q6HP PRN, #120 TAB Prov:ELVIN STRICKLAND MD 07/14/24 Morphine Sulfate (Ms Contin) 15 Mg Tab, 1 TAB PO BID, #60 TAB Prov:ELVIN STRICKLAND MD 07/14/24 Ondansetron Odt 4MG Tab (ZOFRAN PO) 4 Mg Tb, 4 MG PO Q4HP PRN, #60 TAB ODT TAB-DISSOLVE IN MOUTH, THEN SWALLOW Prov:ELVIN STRICKLAND MD 09/09/23 Reported Medications Spironolactone (Spironolactone) 25 Mg Tab, 25 MG PO DAILY, TAB 01/23/24 Furosemide (Furosemide) 20 Mg Tab, 20 MG PO DAILY, TAB 01/23/24 Naproxen Sodium (Aleve) 220 Mg Cap, 220 MG PO for LOWER BACK PAIN, CAP 08/24/23 Information Source: Patient Mode of Arrival: Ambulatory Severity: Moderate Timing: Hours Duration: Since onset Prehospital treatment: None Past Medical History PAST MEDICAL HISTORY: Cancer (peritneal CA, liver/ovarian/intestinal ) Surgical History: Appendectomy, , Tonsillectomy Surgical History (Other): last paracentesis in September 2023 [employer] History: Ovarian Cancer Family History Family History: Reviewed,noncontributory to illness, Family hx of DM, Family hx of Cancer Social History Smoker: Non-Smoker Alcohol: Rarely Drugs: Denies Drug Use Lives In: Home Respiratory: reports: shortness of breath Gastrointestinal: reports: abdomen distended All Other Systems: Reviewed and Negative (negative unless otherwise stated above or in HPI) Physical Exam General Appearance: Moderate Distress HEENT: Normal ENT Inspection, Pharynx Normal, TMs Normal Neck: Full Range of Motion, Non-Tender, Normal, Normal Inspection Respiratory: Other (Coarse breath sounds) Cardiovascular: No Edema, No JVD, No Murmur, No Gallop, Normal Peripheral Pulses, Regular Rate/Rhythm Breast Exam: Deferred Gastrointestinal: Distended Genitalia: Deferred Pelvic: Deferred Rectal: Deferred Extremities: Normal inspection Musculoskeletal : Apperance: Normal Neurologic: Alert, No Motor Deficits, No Sensory Deficits Cerebellar Function: NOT DONE Reflexes: NOT DONE Skin: Dry, Normal Color, Warm Peripheral Pulses: 3+ Radial (R), 3+ Radial (L) Lymphatic: No Adenopathy Was a procedure done? Was a procedure done?: No Differential Dx Considerations may include: ascites, UTI, URI, viral syndrome X-Ray, Labs, Meds, VS Vital Signs Date Time Temp Pulse Resp B/P (MAP) Pulse Ox O2 Delivery O2 Flow Rate FiO2 11/16/24 09:13 98.0 120 18 150/93 (112) 96 Patient alert. Complaining of abdominal distention with shortness a breath. Chronic condition. Vitals stable. Has a ascites which has been increasing pain Last paracentesis was last year. She is on hospice. Spoke with her primary care physician. Paracentesis done here. She states that she was diagnosed with urinary tract infection for which she is supposed to start her medication today. Was given Rocephin. Explained to the patient. Was told to follow up with her primary care physician. Was told to come back if there is any problem. Time of 1ST Reevaluation: 09:30 Reevaluation 1ST: Unchanged Patient Education/Counseling: Diagnosis, Treatment Family Education/Counseling: Diagnosis, Treatment Departure 1 Departure Time of Disposition: 09:20 Impression: Primary Impression: Ascites Qualified Codes: R18.8 - Other ascites Disposition: 01 HOME / SELF CARE / HOMELESS Condition: Good Discharged With: Self Critical Care Note Critical Care Time?: Yes (45 min-critical care time only) Stability Stability form required: No Heart Score Heart Score: Heart Score Response (Comments) Value History N/A 0 EKG N/A 0 Age N/A 0 Risk Factors N/A 0 Troponin N/A 0 Total 0 I personally scribed for HAWA BOOKER MD ([email or web address]) on 11/16/24 at 09:16. Electronically submitted by Tony Chino ([email or web address]). HAWA BOOKER MD Nov 16, 2024 09:16
--- NOTE | 2024-11-16 09:43 | DVH ---
Limited Abdominal Ultrasound - Ascites Evaluation Clinical History: EVAL FOR ASCITES Comparison: US ABDOMEN LIMITED on DOS: 09/08/23, US ABDOMEN LIMITED on DOS: 08/23/23, US ABDOMEN LIMIT ED on DOS: 08/11/23 Technique/Findings/Impression: Limited sonographic evaluation of the abdomen was performed to assess for ascites. There is small volume ascites detected. This is not amenable for paracentesis at this time.
[2024-11-16 10:14] VITALS: BP 116/81; PULSE 104; RESP 15; TEMP 98.1; O2SAT 95
[2024-11-16 11:24] LABS: INR 1.19 (0.9-1.15); Partial Thromboplastin Time 27.5 SEC (24.5-34.5); Prothrombin Time 12.5 sec (9.3-11.8)
--- NOTE | 2024-11-16 12:53 | DVH ---
US PARACENTESIS HISTORY: ASCITES PROCEDURE: Informed consent was obtained. The patient was placed in supine position. A limited locali zation ultrasound of the abdomen was obtained, and the skin site over the largest pocket of fluid was marked and entry site was prepped with chlorhexidine which was allowed to dry and draped in the usua l sterile fashion. Time out was performed. Following administration of 1% lidocaine local anesthetic, a 5 [place] centesis needle catheter was percutaneously inserted into the peritoneal collection until fluid was aspirated. The catheter was advanced into the fluid collection and the needle removed. Abo ut 4000 cc of fluid was aspirated and specimen sent for appropriate cultures/cytology/cultures and cy tology. The catheter was then removed and a sterile dressing applied. No immediate complication was identified. FINDINGS: Limited ultrasound imaging demonstrates mild ascites. Aspirated fluid was dark michelle. IMPRESSION: US-guided paracentesis with 4L removed.
[2024-11-16 16:37] LABS: Body Fluid Polymorphonuclear 24 % (0-25); Body Fluid Red Blood Cells 147168 CUMM (0-2000); Body Fluid White Blood Cells 18915 CUMM (0-200)
[2024-11-17 13:06] LABS: Glucose, Body Fluid <2 mg/dL (.); LD, Body Fluid 6914 IU/L (.); Protein, Body Fluid 6.2 g/dL (.)
== END 2024-11-16 12:59 | disposition home or self-care (01) ==
LOC: ER 08:57
DX: R18.8 Other ascites (principal); Z88.8 Allergy status to other drugs, medicaments and biological substances; Z79.899 Other long term (current) drug therapy; Z90.49 Acquired absence of other specified parts of digestive tract; Z90.89 Acquired absence of other organs; Z98.890 Other specified postprocedural states
CPT/HCPCS: 36415; 49083; 76705; 76942; 83615; 83986; 85610; 85730; 87205; 88104; 88305; 88342; 89051; 99285; C1729